=== PATIENT | female | born 2000 | race African-American/Black ===

== ENCOUNTER 2019-08-24 11:50 | Observation (INO) | payer OTHER ==
[~2019-08-24] VITALS: Ht 152.4 cm; Wt 46.7 kg
[2019-08-24] MEDS ORDERED: DEXT 5%/LACTATED RINGERS 1,000 ML IV SCH (15:00)
[2019-08-24 15:23] LABS: CLARITY URINE CLEAR (CLEAR); COLOR URINE YELLOW (YELLOW); KETONES URINE NEGATIVE (NEGATIVE); LEUKOCYTE ESTERASE URINE 1+ (NEGATIVE); NITRITE URINE NEGATIVE (NEGATIVE); OCCULT BLOOD URINE NEGATIVE (NEGATIVE); PH URINE 6.5 (4.5-8.0); PROTEIN URINE NEGATIVE (NEGATIVE); SPECIFIC GRAVITY URINE 1.022 (1.005-1.030); UROBILINOGEN URINE 0.2 E.U./dL (0.2-1.0)
[2019-08-24 15:34] LABS: BASOPHILS % 0.4 % (0.0-2.0); EOSINOPHILS % 1.4 % (0.0-5.0); HEMATOCRIT. 31.3 % (36.0-48.0); HEMOGLOBIN. 10.9 g/dL (12.0-16.0); LYMPHOCYTES % 12.1 % (20.0-50.0); MEAN CORPUSCULAR HEMOGLOBIN 30.5 pg (28.0-32.0); MEAN PLATELET VOLUME 8.8 fl (7.4-10.4); MONOCYTES % 7.8 % (2.0-8.0); NEUTROPHILS % 78.3 % (40.0-76.0); PLATELET 199 x1000/uL (130-400); RED BLOOD CELL COUNT 3.56 mill/uL (4.2-5.4); RED CELL DISTRIBUTION WIDTH 13.5 % (11.6-14.6)
[2019-08-24] MEDS ORDERED: CEFAZOLIN 2,000 MG in DEXT 5% WATER 100 ML IV NR (17:00)
[2019-08-24] MEDS ORDERED: PNV1TABL76 MT (17:10)
== END 2019-08-24 18:15 | disposition home or self-care (01) ==
LOC: 8 EST LDRP 11:50
PROVIDERS: ADMIT Obstetrics & Gynecology; ATTEND Obstetrics & Gynecology
DX: O26.892 Other specified pregnancy related conditions, second trimester (principal); R10.9 Unspecified abdominal pain; Z3A.25 25 weeks gestation of pregnancy
CPT/HCPCS: 36415; 76805; 81003; 85025; 87086; 96365; 99281; G0378; J0690; J7060; J7121; 96360; 96361